=== PATIENT | male | born 1995 | race Hispanic/Latino ===

== ENCOUNTER 2019-10-08 18:53 | Emergency (ER) | payer SELFPAY ==
[2019-10-08 19:13] VITALS: BP 125/68; PULSE 16; RESP 16; TEMP 36.2; O2SAT 98
--- NOTE | 2019-10-08 19:32 | ED.WOUNDLAC ---
HPI - Wound/Laceration General Chief Complaint: Wound/Laceration Stated Complaint: injury Time Seen by Provider: 10/08/19 19:32 Source: patient Mode of arrival: ambulatory Limitations: no limitations History of Present Illness HPI narrative: Andres Reynoso is a 24 yo male with no PMH who was fall laceration to the dorsum of his right hand that occurred yesterday while working on a car. Is here today for to be examined and to get a tetanus shot Related Data Allergies Allergy/AdvReac Type Severity Reaction Status Date / Time No Known Allergies Allergy Verified 10/08/19 19:22 Review of Systems Review of Systems: Narrative: CONSTITUTIONAL: Denies fever, chills, sweats. EYES: Denies visual changes, redness, discharge. ENT: Denies rhinorrhea, congestion, sore throat, otalgia. CARDIOVASCULAR: Denies chest pain, palpitations, edema. RESPIRATORY: Denies dyspnea, wheezing, cough GASTROINTESTINAL: Denies abdominal pain, nausea, vomiting, diarrhea. GENITOURINARY: Denies dysuria, hematuria, abnormal discharge SKIN: Denies rash or itching. Right dorsum lac less than 1 NEUROLOGIC: Denies numbness, or focal weakness. PSYCHIATRIC: Denies anxiety or depression. [facility]LY [facility] Family History Family History Other No active medical problems Social History Social History (Updated 10/08/19 @ 19:38 by Fina Salgado CNP) Smoking status: Never smoker Substance use: current Comments At time of signature, I agree with nursing past medical, surgical, social and family history. There is no relevant family history pertinent to the presenting complaint. Exam Narrative: Exam Narrative: GENERAL: This is a well-nourished, well-developed patient, in mild distress. HEAD: normocephalic, atraumatic. EYES: Sclera clear/white. Vision is grossly intact. EARS: External ears normal, auditory canals clear and without drainage, TMs normal without perforation. Hearing grossly intact. NOSE: External nose normal without nasal discharge, nares without redness, no rhinorrhea. THROAT: Mucous membranes moist, posterior pharynx NECK: Neck supple, non-tender CARDIOVASCULAR: Regular rate and rhythm without murmurs, gallops, or rubs. RESPIRATORY: Clear to auscultation. Breath sounds equal bilaterally. No wheezes, rales, or rhonchi. GASTROINTESTINAL: Abdomen soft, SKIN: warm, intact with no suspicious lesions or rash, good texture and turgor. Less than 1 cm lack laceration on dorsum of right hand no bleeding, no inflammation NEURO: awake, alert, and oriented to person, place and time. There were no obvious focal neurologic abnormalities. Steady gait EXTREMITIES: Normal range of motion. BACK: Nontender without deformity Course Course Emergency Course: Tetanus shot ordered Laceration tclosed with Steri-Strips Vital Signs Vital signs: Vital Signs Temperature 97.1 F L 10/08/19 19:13 Pulse Rate 16 L 10/08/19 19:13 Respiratory Rate 16 10/08/19 19:13 Blood Pressure 125/68 10/08/19 19:13 Pulse Oximetry 98 10/08/19 19:13 Temperature 97.1 F L 10/08/19 19:13 Pulse Rate 16 L 10/08/19 19:13 Respiratory Rate 16 10/08/19 19:13 Blood Pressure 125/68 10/08/19 19:13 Pulse Oximetry 98 10/08/19 19:13 Procedures Laceration Laceration 1: Date: 10/08/19 Time: 19:40 Site: hand Side (If applicable): right Size (cm): 1 Description: linear Depth: simple, single layer Pre-repair: irrigated ====== Skin Level ====== Skin layer closed with: steri strips ====== Subcutaneous Layer ====== ====== Muscle Layer ====== ====== Tendon Layer ====== MDM - Wound/Laceration Differential Diagnosis Differential diagnosis: Likely laceration, abrasion, avulsion of skin and other Discharge Plan Discharge Clinical Impression: Laceration Patient Disposition: Home, Self-Care Condition: Stable Instruct
[2019-10-08] MEDS: TETANUS,DIPHTHERIA,AC PERTUSSIS ADULT (0.5 ML) BOOSTRIX IM (19:38)
== END 2019-10-08 19:58 | disposition home or self-care (01) ==
PROVIDERS: Emergency Provider Nurse Practitioner
DX: S61.411A Laceration without foreign body of right hand, initial encounter (principal); W19.XXXA Unspecified fall, initial encounter; Z23 Encounter for immunization
CPT/HCPCS: 90471; 90715; 99212; G0463